=== PATIENT | male | born 1995 | race Caucasian/White ===

== ENCOUNTER → 2017-02-27 | Day surgery (SDC) | payer OTHER ==
[~2017-02-27] VITALS: Ht 185.4 cm; Wt 106.6 kg
--- NOTE | 2017-02-27 11:11 | Operative Report ---
Operative/Inv Procedure Report Surgery Date: 02/27/17 Name of Procedure: Right ankle arthroscopy, debridement, open ganglion cyst resection Pre-Operative Diagnosis: Right ankle ganglion cyst Post-Operative Diagnosis: Right ankle ganglion cyst Estimated Blood Loss: scant Surgeon/Electrician Office: SHAYY EUCEDA,FUAD Cronin Anesthesia: general endotracheal tube Complications: None Condition: Stable to PACU Operative Indication: This is a 21-year-old male who is had persistent right ankle pain. He developed a ganglion cyst that was aspirated. He has had recurrent discomfort despite conservative care. Risks and benefits of the procedure were discussed with the patient at length. Risks include but are not limited to nerve damage, muscle damage, infection, blood loss, blood clots, pulmonary embolus, and even . The patient agreed to the above risks and elected to proceed with surgery. Operative/Procedure Note Note: The patient was placed supine on the operating room table. A tourniquet was applied. The lower extremity was prepped and draped in the normal sterile fashion. A timeout was performed before the incision. The site marking was visualized before incision. After the leg was prepped and draped, an Esmarch was used to exsanguinate the extremity. The tourniquet was inflated. The spinal needle was used to insufflate the ankle with saline medial to the tibialis anterior tendon. An 11 blade was used to incise a skin. A curved clamp was then inserted with the ankle in dorsiflexion to protect the articular surface. The curved clamp was brought laterally and used to localize the placement of a lateral portal. Traction was applied to the fourth toe to identify the superficial peroneal nerve branch. Care was taken to protect the nerve from the incision. Next a cannula was placed to the medial portal. The camera was inserted. The diagnostic arthroscopy was then performed. The shaver was then used to debride the medial and lateral gutters of any synovitis. The distal tibiofibular ligament was then debrided. An incision was made overlying the ganglion cyst superficial to the distal tibial fibular joint. the ganglion cyst was identified. It was isolated and then amputated at its stalk. The wound was copiously irrigated. The skin was closed with 2-0 Vicryl suture and a running subcuticular 3-0 Prolene stitch. The ankle was copiously irrigated. The portal sites were closed with 3-0 prolene suture in a simple interrupted fashion. The ankle was injected with 5 mL of 0.25% Marcaine with epinephrine. A dry sterile dressing was applied and the patient was transferred to PACU in stable condition. Findings: Ganglion cyst at the distal tibiofibular joint. Synovitis involving the anterior compartment, medial, and lateral gutters. Medial tibial articular cartilage with grade 2 chondral fraying. Otherwise articular cartilage involving the medial malleolus, talus, lateral malleolus intact. No loose bodies noted.
== END ==
LOC: STS 02:53
DX: M65.871 Other synovitis and tenosynovitis, right ankle and foot (principal); M67.471 Ganglion, right ankle and foot; M71.39 Other bursal cyst, multiple sites; M67.89 Other specified disorders of synovium and tendon, multiple sites; M25.571 Pain in right ankle and joints of right foot; E66.9 Obesity, unspecified; F17.290 Nicotine dependence, other tobacco product, uncomplicated
CPT/HCPCS: 88304; J0690; J2250